=== PATIENT | female | born 1960 | race Caucasian/White ===

== ENCOUNTER 2024-03-04 20:33 | Emergency (ER) | payer OTHER ==
[2024-03-04] MEDS ORDERED: ONDANSETRON 4 MG/2 ML VIAL ONE (21:06)
[2024-03-04] MEDS ORDERED: MORPHINE 4 MG/ML SYR ONE (21:07)
[2024-03-04 21:16] LABS: Absolute Basophils 0.1 K/uL (0-0.5); Absolute Eosinophils 0.1 K/uL (0-0.5); Absolute Lymphocytes (CBC) 0.4 K/uL (0.7-4.9); Absolute Monocytes 0.5 K/uL (0.1-1.3); Absolute Neutrophil 12.3 K/uL (1.8-8.0); Basophils % 0.4 % (0-1.3); Eosinophils % 0.9 % (0-4.4); Hematocrit 32.4 % (36.0-45.0); Hemoglobin 10.9 g/dL (12.0-15.0); Lymphocytes % 3.2 % (15.3-44.8); MCH 31.6 pg (27.0-35.0); MCHC 33.6 g/dL (32.0-36.0); MCV 94.3 fL (80-100); MPV 8.5 fL (7.6-11.3); Monocytes % 3.6 % (3.3-12.3); Neutrophils % 91.9 % (41.7-73.7); Nucleated Red Blood Cells % 0.1 % (0-0); Platelets 249 thou/uL (152-406); RBC Red Blood Cell Count 3.44 M/uL (3.86-4.86); Red Cell Distribution Width 15.5 % (12.1-15.2)
[2024-03-04 21:17] LABS: Platelet Estimate ADEQ; White Blood Cell Scan OK (OK)
[2024-03-04 21:18] LABS: Blood Morphology Comment NOT SEEN (NOT SEEN)
[2024-03-04 21:39] LABS: AST/SGOT 13 U/L (15-37); Albumin 3.2 g/dL (3.4-5.0); Albumin/Globulin Ratio 0.9 (1.1-1.8); Alkaline Phosphatase 115 U/L (45-117); Anion Gap 13.7 mEq/L (5.0-15.0); BUN Blood Urea Nitrogen 48 mg/dL (7-18); Bicarbonate 21 mEq/L (21-32); Bilirubin Total 0.5 mg/dL (0.2-1.0); Creatine Phosphokinase 499 U/L (26-192); Globulin 3.6 g/dL (2.3-3.5); Glomerular Filtration Rate 4 ml/min (=/>90); Glucose Level 107 mg/dL (74-106); Potassium 4.7 mEq/L (3.5-5.1); Protein, Total 6.8 g/dL (6.4-8.2); Sodium Level 130 mEq/L (136-145)
[2024-03-04 21:40] LABS: ALT/SGPT < 14 U/L (13-56)
--- NOTE | 2024-03-05 00:03 | ER ---
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 Pt had a blockage in jb4 her right leg that [facility] tried to clear. She was discharged and today she stood up and felt a sharp pain in her calf that went up to her thigh. Now her right foot has no feeling, and is colder than the left. Coronavirus screen: At this time, the client does not indicate any symptoms associated with coronavirus-19. Ebola Screen: No symptoms or risks identified at this time. Initial Sepsis Screen: Does the patient meet any 2 criteria? No. Patient's initial sepsis screen is negative. Does the patient have a suspected source of infection? No. Patient's initial sepsis screen is negative. Risk Assessment: Do you want to hurt yourself or someone else? Patient reports no desire to harm self or others. Onset of symptoms was March 04, 2024. Transition of care: patient was not received from another setting of care. 20:40 Method Of Arrival: EMS: [facility] jb4 20:40 Acuity: OLIMP[place] 2 jb4 Historical: - Allergies: 20:42 No Known Allergies; jb4 - PMHx: 20:42 Dialysis; HTN; Renal failure; Smoking; jb4 - PSHx: 20:42 J LUIS nephrectomy; jb4 - Immunization history:: Adult Immunizations up to date. - Infectious Disease History:: Denies. - Social history:: Smoking status: Patient/guardian denies using tobacco. Screenin/01 00:40 [facility] ED Fall Risk Assessment (Adult) History of falling in the last 3 months, jb4 including since admission No falls in past 3 months (0 pts) Confusion or Disorientation No (0 pts) Intoxicated or Sedated No (0 pts) Impaired Gait No (0 pts) Mobility Assist Device Used No (0 pt) Altered Elimination No (0 pt) Score/Fall Risk Level 0 - 2 = Low Risk Oriented to surroundings, Maintained a safe environment. Abuse screen: Denies threats or abuse. Nutritional screening: No deficits noted. Tuberculosis screening: No symptoms or risk factors identified. Assessment: 03/04 20:45 General: Appears in no apparent distress. uncomfortable, Behavior is cooperative, jb4 anxious. Pain: Complains of pain in right foot Pain does not radiate. Pain currently is 6 out of 10 on a pain scale. Neuro: Level of Consciousness is awake, alert, obeys commands, Oriented to person, place, time, situation, Numbness in right foot. Cardiovascular: Patient's skin is warm and dry. Pulses are 1+ in right dorsalis pedis artery are 2+ in left dorsalis pedis artery. Respiratory: Airway is patent Respiratory effort is even, unlabored, Respiratory pattern is regular, symmetrical. GI: No signs and/or symptoms were reported involving the gastrointestinal system. : No signs and/or symptoms were reported regarding the genitourinary system. EENT: No signs and/or symptoms were reported regarding the EENT system. Derm: Skin is intact, Skin is dry, Skin is normal, Skin temperature is Left foot is warm, right foot is cool. Musculoskeletal: Circulation, motion, and sensation intact. Range of motion: intact in all extremities, Reports numbness in right foot. 22:02 Reassessment: Patient appears in no apparent distress at this time. Patient and/or jb4 family updated on plan of care and expected duration. Pain level reassessed. Patient is alert, oriented x 3, equal unlabored respirations, skin warm/dry/pink. Pt now reports being able to feel when her right foot is touched. Patient states symptoms have improved. 23:38 Reassessment: Patient appears in no apparent distress at this time. Patient and/or jb4 family updated on plan of care and expected duration. Pain level reassessed. Patient is alert, oriented x 3, equal unlabored respirations, skin warm/dry/pink. 03/05 00:09 Reassessment: Patient appears in no apparent distress at this time. Patient and/or jb4 family updated on plan of care and expected duration. Pain level reassessed. Patient is alert, oriented x 3, equal unlabored respirations, skin warm/dry/pink. J LUIS are now both pink and warm, Pulses 2+, and. Vital Signs: 03/04 20:40 BP 154 / 118; Pulse 76; Resp 16; Pulse Ox 91% on R/A; Weight 78.93 kg (R); Height 5 ft. jb4 3 in. (R); Pain 6/10; 21:00 BP 161 / 51; Pulse 71; Resp 16; Pulse Ox 92% on 2 lpm NC; jb4 23:38 BP 187 / 81; Pulse 67; Resp 16; Pulse Ox 97% on 4 lpm NC; jb4 03/05 00:14 BP 207 / 89; Pulse 64; Resp 16; Pulse Ox 96% on 4 lpm NC; jb4 00:40 BP 167 / 78; Pulse 62; Resp 16; Pulse Ox 95% on 4 lpm NC; jb4 03/04 20:40 Body Mass Index 30.82 (78.93 kg, 160.02 cm) jb4 03/04 20:40 Pain Scale: Adult jb4 ED Course: 03/04 20:38 Patient arrived in ED. vc1 20:38 Trino Reed MD is Attending Physician. rt 20:42 Triage completed. jb4 20:42 Arm band placed on right wrist. jb4 21:40 CT Abdomen - Angio In Process Unspecified. EDMS 21:40 Pelvis Angio In Process Unspecified. EDMS 21:41 Lower Ext Angio In Process Unspecified. EDMS 21:58 Vipul Fields, RN is Primary Nurse. jb4 23:43 Initiated transfer with Lorraine at [facility]. rv1 23:53 Doc to Doc with Vascular Sx Dr. Reich. rv1 23:56 Pt accepted to [facility] 9A Rm [address] Reich. rv1 03/05 00:22 Percy with EMS gave 10-15 min ETA. rv1 00:40 Patient has correct armband on for positive identification. Bed in low position. Call [facility] light in reach. Side rails up X 1. Provided Education on: need for transfer. 00:40 No provider procedures requiring assistance completed. Patient transferred, IV remains jb4 in place. Administered Medications: 03/04 21:13 Drug: morphine IVP or IV 4 mg IVP once over 4 mins Route: IVP; Infused Over: 4 mins; jb4 Site: right hand; 21:13 Drug: Ondansetron IVP 4 mg IVP once; over 2 minutes Route: IVP; Site: right hand; jb4 03/05 00:15 Drug: hydrALAZINE IVP 10 mg IVP once Route: IVP; Site: right forearm; jb4 Medication: 00:40 VIS not applicable for this client. jb4 Outcome: 00:03 ER care complete, transfer ordered by . rt 01:40 Transferred by ground EMS to [facility], Transfer form jb4 completed. X-rays sent w/ patient. 01:40 Condition: stable 01:40 Discharge instructions given to patient, Instructed on the need for transfer, Demonstrated understanding of instructions, 01:42 Patient left the ED. jb4 Signatures: Dispatcher [employer] EDMS Vipul Fields RN RN jb4 Samreen Tavares RN RN vc1 Trino Reed MD MD rt Villegas, Rebecca 1
--- NOTE | 2024-03-05 00:03 | EDPHYS ---
Physician Documentation [facility] Name: Sabrina Camargo Age: 63 yrs Sex: Female : 1960 Arrival Date: 03/04/2024 Time: 20:33 Bed 23 Private MD: ED Physician Trino Reed HPI: 03/04 20:41 This 63 yrs old Female presents to ER via Unassigned with complaints of leg numbness, rt pain. 20:41 Patient had a vascular procedure today to improve mesenteric ischemia, this was done at rt [place]. The patient reported pain to the right leg with numbness, stating that his cold about 30 minutes. Was told to come to the nearest ER by her physician. Denies other acute complaints, symptoms are severe in severity, no other aggravating or elevating factors.. Historical: - Allergies: 20:42 No Known Allergies; jb4 - PMHx: 20:42 Dialysis; HTN; Renal failure; Smoking; jb4 - PSHx: 20:42 J LUIS nephrectomy; jb4 - Immunization history:: Adult Immunizations up to date. - Infectious Disease History:: Denies. - Social history:: Smoking status: Patient/guardian denies using tobacco. ROS: 20:41 Constitutional: Negative for fever, chills, and weight loss, Cardiovascular: Negative rt for chest pain, palpitations, and edema, Respiratory: Negative for shortness of breath, cough, wheezing, and pleuritic chest pain, Abdomen/GI: Negative for abdominal pain, nausea, vomiting, diarrhea, and constipation, 20:41 MS/extremity: Positive for pain, paresthesias, Exam: 20:41 Constitutional: This is a well developed, well nourished patient who is awake, alert, rt and in no acute distress. Head/Face: Normocephalic, atraumatic. Chest/axilla: Normal chest wall appearance and motion. Nontender with no deformity. No lesions are appreciated. Cardiovascular: Regular rate and rhythm with a normal S1 and S2. No gallops, murmurs, or rubs. Normal PMI, no JVD. No pulse deficits. Respiratory: Lungs have equal breath sounds bilaterally, clear to auscultation and percussion. No rales, rhonchi or wheezes noted. No increased work of breathing, no retractions or nasal flaring. Abdomen/GI: Soft, non-tender, with normal bowel sounds. No distension or tympany. No guarding or rebound. No evidence of tenderness throughout. 20:41 Musculoskeletal/extremity: Right lower extremity is cool, unable to palpate dorsalis pedis pulses, no focal areas of tenderness, no deformities. Vital Signs: 20:40 BP 154 / 118; Pulse 76; Resp 16; Pulse Ox 91% on R/A; Weight 78.93 kg (R); Height 5 ft. jb4 3 in. (R); Pain 6/10; 21:00 BP 161 / 51; Pulse 71; Resp 16; Pulse Ox 92% on 2 lpm NC; jb4 23:38 BP 187 / 81; Pulse 67; Resp 16; Pulse Ox 97% on 4 lpm NC; jb4 03/05 00:14 BP 207 / 89; Pulse 64; Resp 16; Pulse Ox 96% on 4 lpm NC; jb4 00:40 BP 167 / 78; Pulse 62; Resp 16; Pulse Ox 95% on 4 lpm NC; jb4 03/04 20:40 Body Mass Index 30.82 (78.93 kg, 160.02 cm) 4 03/04 20:40 Pain Scale: Adult jb4 MDM: 03/04 20:38 Patient medically screened. rt 03/05 01:19 Differential Diagnosis Acute claudication, thrombus, ischemic leg. Data reviewed: vital rt signs, nurses notes. Management of patient was discussed with the following: Political Science Instructor: Discussed with accepting vascular surgeon at [facility]. Will transfer her there as she just had a vascular procedure at that facility. I considered the following discharge prescriptions or medication management in the emergency department Medications were administered in the Emergency Department. See MAR. Independent interpretation of the following test(s) in the Emergency Department CT Scan: My interpretation is Contrast goes to the plantar arches on my interpretation of CT scan images. Care significantly affected by the following chronic conditions: Chronic Kidney Disease. Counseling: I had a detailed discussion with the patient and/or guardian regarding the historical points, exam findings, and any diagnostic results supporting the discharge/admit diagnosis, lab results, radiology results, the need to transfer to another facility. Response to treatment: the patient's symptoms have markedly improved after treatment. 03/04 20:39 Order name: CBC with Diff; Complete Time: 21:41 rt 03/04 20:39 Order name: CMP; Complete Time: 21:41 rt 03/04 20:39 Order name: CPK; Complete Time: 21:41 rt 03/04 20:39 Order name: Lactate w/ 2H reflex if indic.; Complete Time: 21:41 rt 03/04 21:18 Order name: CBC Smear Scan; Complete Time: 21:41 EDMS 03/04 20:39 Order name: CT Abdomen - Angio rt 03/04 21:33 Order name: Pelvis Angio EDMS 03/04 21:33 Order name: Lower Ext Angio EDMS Administered Medications: 03/04 21:13 Drug: morphine IVP or IV 4 mg IVP once over 4 mins Route: IVP; Infused Over: 4 mins; jb4 Site: right hand; 21:13 Drug: Ondansetron IVP 4 mg IVP once; over 2 minutes Route: IVP; Site: right hand; jb4 03/05 00:15 Drug: hydrALAZINE IVP 10 mg IVP once Route: IVP; Site: right forearm; jb4 Disposition Summary: 03/05/24 00:03 Transfer Ordered Notes: Transfer Location: [facility] rt Reason: Private Physician at Transferring Hospital rt Condition: Stable rt Problem: new rt Symptoms: have improved rt Accepting Physician: (03/05/24 01:42) jb4 Diagnosis - 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
--- NOTE | 2024-03-05 00:04 | RAD REPORT ---
ADDENDUM #1 Addendum: These findings were relayed to Dr. Trino Reed on March 04, 2024 at 11:34 PM. Electronically signed by: Dmitry Pina MD 03/04/2024 11:34 PM CDT RP End of Addendum Clinical Indication: Bed Name: 23; with lower extremity runoff, pulsless right leg Comparison: February 02, 2024 TECHNIQUE: CT angiography of the abdomen, pelvis and lower extremities was performed from the level o f the upper abdomen to the feet after administration of iodinated contrast. Coronal and sagittal reconstructions were obtained. 3-D reconstruction imaging with postprocessing was also performed of t he arterial vessels. Coronal and sagittal MIP images were performed and provided as separate series. IV CONTRAST: IV contrast dose was not provided All CT scans at this location are performed using dose optimization techniques as appropriate to perf orm the study. Radiation dose reduction technique was utilized including one or more of the following: Automated exp osure control, adjustment of the mA and/or kV according to patient size and use of iterative reconstruction technique. CT Radiation Dose DLP 1484.7 mGy-cm FINDINGS: CTA ABDOMEN: ARTERIAL EVALUATION: The abdominal aorta is moderately atherosclerotic. The celiac, superior mesenteric and inferior mesenteric arteries are patent. The proximal arterial br anches are opacified. Moderate atherosclerotic disease is noted at the origin of the SMA and bilateral renal arteries. The renal arteries are patent without evidence of renal artery stenosis. There are 1 right and 1 left renal arteries. The right renal artery is diminutive and the right kidney is atrophic. Mild ectasia of the distal aorta is noted measuring 3.5 cm in maximum diameter. ABDOMINAL SOLID ORGANS: The arterial phase contrast-enhanced images of the liver, gallbladder, pancre as, left kidney and adrenals are unremarkable. The right kidney is atrophic. Heterogeneous enhancement of the spleen is noted and grossly unchanged compared to February 02, 2024. A left double-J ureteral stent is noted. The proximal loop is in the renal pelvis. The distal loop is in the urinary bladder. 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 PERITONEUM AND RETROPERITONEUM: There is no retroperitoneal or abdominal lymphadenopathy. There is no abdominal ascites. STOMACH AND BOWEL: The noncontrast opacified stomach appears unremarkable. The noncontrast opacified loops of bowel in the abdomen are unremarkable. VISUALIZED LUNG BASES: Unremarkable. OSSEOUS STRUCTURES: No acute bony abnormalities are noted. Degenerative changes of the thoracolumba r spine are noted. CTA PELVIS: ARTERIAL EVALUATION: Moderate atherosclerotic disease is noted in the bilateral common, external and internal iliac arteries. No critical stenosis is noted. The right common femoral artery is moderately atherosclerotic without stenosis, dissection or aneurysm. The left common femoral artery contains an adjacent lobulated region of contrast. This can be seen on image 39 series 403. Surrounding fat stranding is noted. The complex measures 12 x 17 mm in cross-section. This is consistent with pseudoaneurysm. Subcutaneous fat stranding is noted in the lef t groin, likely hemorrhage.. BOWEL: The noncontrast opacified loops of small bowel and colon in the pelvis appear unremarkable. Sc attered diverticuli are noted in the sigmoid colon. No surrounding inflammatory changes are seen to suggest acute diverticulitis. The appendix is normal in caliber without surrounding inflammatory linares ges. PERITONEUM AND EXTRAPERITONEAL REGIONS: There is no pelvic lymphadenopathy or ascites. The inguinal r egions are unremarkable. BLADDER: The bladder is unremarkable. PELVIS: The uterus and adnexa are unremarkable. OSSEOUS STRUCTURES: There are no acute osseous abnormalities seen. CTA EXTREMITY: LOWER EXTREMITY ARTERIAL EVALUATION: RIGHT: The right profunda femoris is patent. Moderate stenosis is noted in the right proximal SFA. This is a pproximately 70%. Evaluation of the arterial lumen is limited due to extensive atherosclerotic disease. Extensive luminal irregularity is noted, consistent with moderate long segment stenosis. Foc al areas of nonopacification are noted but likely limited evaluation with the calcification and are just areas of moderate to high-grade stenoses. The popliteal artery is moderately atherosclerotic and opacified. The tibioperoneal trunk is unremarkable. There is at least single vessel runoff to the ankle with the posterior tibial artery. The plantar arch is opacified. The anterior tibial artery is likely patent and evaluation is limited due to bolus timing. LEFT: The left profunda femoris is patent. The left SFA is patent and moderately atherosclerotic. The popli teal artery is opacified. The tibioperoneal trunk is unremarkable. There is two-vessel runoff to the left ankle with peroneal and anterior tibial artery. The dorsalis pedis artery is opacified. A co llateral vessel is noted from the peroneal to the plantar arch. Opacification of the left plantar arch is noted. NON-VASCULAR LOWER EXTREMITY STRUCTURES: There are no fractures or dislocations noted. The lower extr emity musculature appears unremarkable. IMPRESSION: 1. Moderately atherosclerotic aortoiliac vessels. 2. 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 3. Extensive atherosclerotic disease within the lower extremity arteries, greater on the right. 4. Single vessel runoff to the right ankle with posterior tibial artery. The plantar arch is opacifie d. Anterior tibial artery is likely patent and evaluation is limited due to bolus timing. 5. Two-vessel runoff to the left ankle with peroneal and anterior tibial artery. Collateral vessel fr om the peroneal artery to the plantar arch is noted. Electronically signed by: Dmitry Pina MD 03/04/2024 11:28 PM CDT RP Due to temporary technical issues with the PACS/[employer] reporting system, reports are being sarah d by the in-house radiologist without review as a courtesy to ensure prompt reporting the interpreting radiologist is fully responsible for the content of the report. Transcribed Date/Time: 03/05/2024 12:03 AM
[2024-03-05] MEDS ORDERED: HYDRALAZINE HCL 20 MG/ML VIAL ONE (00:12)
[2024-03-05 02:21] VITALS: BP 167/78; O2SAT 95
== END 2024-03-05 01:42 | disposition short-term general hospital (02) ==
LOC: ER 20:33
DX: I70.8 Atherosclerosis of other arteries (principal); I72.8 Aneurysm of other specified arteries; Z98.890 Other specified postprocedural states; I12.0 Hypertensive chronic kidney disease with stage 5 chronic kidney disease or end stage renal disease; N18.6 End stage renal disease; Z99.2 Dependence on renal dialysis
CPT/HCPCS: 85025; 36415; 82550; 83605; 80053; 73706; 72191; 74175; 99285; Q9967; J0360; J2405; 75635

== ENCOUNTER 2024-05-27 11:10 | Emergency (ER) | payer OTHER ==
--- NOTE | 2024-05-27 12:04 | RAD REPORT ---
EXAM: CT brain without contrast HISTORY: TRAUMA COMPARISON: None TECHNIQUE: Multiple contiguous axial images were obtained and a CT of the brain without contrast. Sag ittal and coronal reformats were performed. FINDINGS: No evidence of hydrocephalus, intracranial hemorrhage, or extra-axial fluid collection. Mild brain atrophy with mild periventricular and deep white matter chronic microvascular ischemic ch anges present. Focus of radiodensity along the course of the left MCA in the sylvian fissure, may represent intracranial atherosclerotic calcification. The calvarium is intact. The visualized paranasal sinuses and mastoid air cells are essentially clear . Mild left frontal scalp swelling. IMPRESSION: No evidence of acute intracranial abnormality. EXAM: CT of the cervical spine without contrast HISTORY: TRAUMA COMPARISON: None TECHNIQUE: Multiple contiguous axial images were obtained in a CT of the cervical spine without contr ast. Sagittal and coronal reformats were performed. FINDINGS: The vertebral bodies demonstrate normal height and alignment. No evidence of acute fracture or subluxation.. No degenerative changes are present. No prevertebral soft tissue swelling is seen. The posterior facets are well aligned. Normal alignment of the skull base with the cervical spine is seen. The lung apices are unremarkable. Incompletely evaluated left thyroid heterogeneous low-density and partially calcified 1.6 cm nodule. IMPRESSION: No evidence of acute osseous abnormality of the cervical spine. Incidentally noted left thyroid 1.6 cm nodule as above, which may benefit from dedicated thyroid ultr asound evaluation if not previously performed.
--- NOTE | 2024-05-27 12:17 | ER ---
Nurse's Notes [facility] [place] Name: Sabrina Camargo Age: 63 yrs Sex: Female : 1960 Arrival Date: 05/27/2024 Time: 11:10 Bed 8 Private MD: Diagnosis: Fall on same level, unspecified;Repeated falls;Unspecified injury of head, initial encounter;Dependence on renal dialysis;Nontoxic single thyroid nodule-incidental finding Presentation: 05/27 11:42 Chief complaint: Patient states: fell on Monday, hung foot on wheelchair when getting ko1 into car after dialysis. I had vascular surgery in my right leg in March and its a little weak so its easy to fall. Coronavirus screen: At this time, the client does not indicate any symptoms associated with coronavirus-19. Ebola Screen: No symptoms or risks identified at this time. Initial Sepsis Screen: Does the patient meet any 2 criteria? No. Patient's initial sepsis screen is negative. Does the patient have a suspected source of infection? No. Patient's initial sepsis screen is negative. Risk Assessment: Do you want to hurt yourself or someone else? Patient reports no desire to harm self or others. Onset of symptoms was May 25, 2024. Mechanism of Injury: Fall from standing position. 11:42 Method Of Arrival: Ambulatory ko1 11:42 Acuity: OLIMPIA 3 ko1 Triage Assessment: 11:46 General: Appears in no apparent distress. Behavior is calm, cooperative, appropriate ko1 for age. Pain: Denies pain. EENT: No deficits noted. Neuro: No deficits noted. Cardiovascular: No deficits noted. Respiratory: No deficits noted. GI: No deficits noted. : Reports dialysis patient, access in right upper chest and fistula to left upper arm. Derm: Bruising that is green, yellow, on forehead. Musculoskeletal: No deficits noted. No signs and/or symptoms reported regarding the musculoskeletal system. Injury Description: Abrasion sustained to forehead was sustained 2 days ago. Historical: - Allergies: 11:46 No Known Allergies; ko1 - PMHx: 11:46 Dialysis; HTN; RENAL FAILURE; Smoking; Myocardial infarction; ko1 - PSHx: 11:46 J LUIS nephrectomy; vascular surgery (J LUIS nephrectomy ); Stented artery; ko1 - Immunization history:: Adult Immunizations up to date. - Infectious Disease History:: Denies. - Family history:: not pertinent. - Social history:: Smoking status: Patient reports the use of cigarette tobacco products, smokes one-half pack cigarettes per day, Reported history of juuling and/or vaping. Screenin:48 [facility] ED Fall Risk Assessment (Adult) History of falling in the last 3 months, ko1 including since admission Yes- single mechanical fall (1 pt) Confusion or Disorientation No (0 pts) Intoxicated or Sedated No (0 pts) Impaired Gait No (0 pts) Mobility Assist Device Used No (0 pt) Altered Elimination No (0 pt) Score/Fall Risk Level 0 - 2 = Low Risk Oriented to surroundings, Maintained a safe environment, Educated pt \T\ family on fall prevention, incl call for assistance when getting out of bed, Assessed \T\ reinforced patient's understanding of fall precautions, Hourly rounding (assess needs \T\ fall precautionary measures) done. Abuse screen: Denies threats or abuse. Denies injuries from another. Nutritional screening: No deficits noted. Tuberculosis screening: No symptoms or risk factors identified. Assessment: 11:48 Reassessment: see triage note. ko1 Vital Signs: 11:42 BP 148 / 73; Pulse 84; Resp 18; Temp 97.1; Pulse Ox 98% on R/A; ko1 12:26 BP 147 / 57; Pulse 80; Resp 15; Pulse Ox 99% ; ko1 ED Course: 11:12 Patient arrived in ED. mr 11:16 Travis Bean MD is Attending Physician. shraddha 11:29 CT Head C Spine In Process Unspecified. EDMS 11:33 Shannen Patel, CHELSEA is Primary Nurse. ko1 11:45 Triage completed. ko1 11:46 Arm band placed on right wrist. Patient placed in an exam room, on a stretcher, on ko1 pulse oximetry, Patient notified of wait time. 11:48 Patient has correct armband on for positive identification. Bed in low position. Call ko1 light in reach. Side rails up X 1. Provided Education on: tests. Pulse ox on. NIBP on. Door closed. Noise minimized. Lights dimmed. Pillow given. 11:48 No provider procedures requiring assistance completed. ko1 12:26 Patient did not have IV access during this emergency room visit. ko1 Administered Medications: No medications were administered Medication: 11:48 VIS not applicable for this client. ko1 Outcome: 12:16 Discharge ordered by . shraddha 12:26 Discharged to home ambulatory, ko1 12:26 Condition: stable 12:26 Discharge instructions given to patient, Instructed on discharge instructions, follow up and referral plans. Demonstrated understanding of instructions, follow-up care, 12:27 Patient left the ED. ko1 Signatures: Dispatcher [employer] EDMS Travis Bean MD MD cha Rivera, Mary, [facility] Reg Shannen Jauregui, RN RN ko1 Corrections: (The following items were deleted from the chart) 11:51 11:46 : No deficits noted. ko1 ko1
--- NOTE | 2024-05-27 12:17 | EDPHYS ---
Physician Documentation [facility] Name: Sabrina Camargo Age: 63 yrs Sex: Female : 1960 Arrival Date: 05/27/2024 Time: 11:10 Bed 8 Private MD: ED Physician Travis Bean HPI: 05/27 11:33 This 63 yrs old Female presents to ER via Unassigned with complaints of Fall shraddha Injury, Head Injury-Adult. 11:33 Details of fall: The patient fell from an upright position, while walking. Onset: The shraddha symptoms/episode began/occurred yesterday. Associated injuries: The patient sustained injury to the head, contusion, swelling. Severity of symptoms: At their worst the symptoms were mild, in the emergency department the symptoms are unchanged. The patient has experienced similar episodes in the past, several times. Historical: - Allergies: 11:46 No Known Allergies; ko1 - PMHx: 11:46 Dialysis; HTN; RENAL FAILURE; Smoking; Myocardial infarction; ko1 - PSHx: 11:46 J LUIS nephrectomy; vascular surgery (J LUIS nephrectomy ); Stented artery; ko1 - Immunization history:: Adult Immunizations up to date. - Infectious Disease History:: Denies. - Family history:: not pertinent. - Social history:: Smoking status: Patient reports the use of cigarette tobacco products, smokes one-half pack cigarettes per day, Reported history of juuling and/or vaping. ROS: 11:33 Constitutional: Negative for fever, chills, and weight loss, Eyes: Negative for injury, shraddha pain, redness, and discharge, ENT: Negative for injury, pain, and discharge, Neck: Negative for injury, pain, and swelling, Cardiovascular: Negative for chest pain, palpitations, and edema, Respiratory: Negative for shortness of breath, cough, wheezing, and pleuritic chest pain, Abdomen/GI: Negative for abdominal pain, nausea, vomiting, diarrhea, and constipation, Back: Negative for injury and pain, : Negative for injury, bleeding, discharge, and swelling, MS/Extremity: Negative for injury and deformity, Skin: Negative for injury, rash, and discoloration, Psych: Negative for depression, anxiety, suicide ideation, homicidal ideation, and hallucinations, Allergy/Immunology: Negative for hives, rash, and allergies, Endocrine: Negative for neck swelling, polydipsia, polyuria, polyphagia, and marked weight changes, Hematologic/Lymphatic: Negative for swollen nodes, abnormal bleeding, and unusual bruising, 11:33 Neuro: Positive for headache, of the forehead, Exam: 11:33 Constitutional: This is a well developed, well nourished patient who is awake, alert, shraddha and in no acute distress. Eyes: Pupils equal round and reactive to light, extra-ocular motions intact. Lids and lashes normal. Conjunctiva and sclera are non-icteric and not injected. Cornea within normal limits. Periorbital areas with no swelling, redness, or edema. ENT: Nares patent. No nasal discharge, no septal abnormalities noted. Tympanic membranes are normal and external auditory canals are clear. Oropharynx with no redness, swelling, or masses, exudates, or evidence of obstruction, uvula midline. Mucous membranes moist. Neck: Trachea midline, no thyromegaly or masses palpated, and no cervical lymphadenopathy. Supple, full range of motion without nuchal rigidity, or vertebral point tenderness. No Meningismus. Chest/axilla: Normal chest wall appearance and motion. Nontender with no deformity. No lesions are appreciated. Cardiovascular: Regular rate and rhythm with a normal S1 and S2. No gallops, murmurs, or rubs. Normal PMI, no JVD. No pulse deficits. Respiratory: Lungs have equal breath sounds bilaterally, clear to auscultation and percussion. No rales, rhonchi or wheezes noted. No increased work of breathing, no retractions or nasal flaring. Abdomen/GI: Soft, non-tender, with normal bowel sounds. No distension or tympany. No guarding or rebound. No evidence of tenderness throughout. Back: No spinal tenderness. No costovertebral tenderness. Full range of motion. Skin: Warm, dry with normal turgor. Normal color with no rashes, no lesions, and no evidence of cellulitis. MS/ Extremity: Pulses equal, no cyanosis. Neurovascular intact. Full, normal range of motion., bilateral aka Neuro: Awake and alert, GCS 15, oriented to person, place, time, and situation. Cranial nerves II-XII grossly intact. Motor strength 5/5 in all extremities. Sensory grossly intact. Cerebellar exam normal. Normal gait. Psych: Awake, alert, with orientation to person, place and time. Behavior, mood, and affect are within normal limits. 11:33 Head/face: Noted is contusion, that is superficial, of the forehead, Vital Signs: 11:42 BP 148 / 73; Pulse 84; Resp 18; Temp 97.1; Pulse Ox 98% on R/A; ko1 12:26 BP 147 / 57; Pulse 80; Resp 15; Pulse Ox 99% ; ko1 MDM: 11:16 Medical Screening Exam initiated shraddha 11:35 Differential diagnosis: abrasion, closed head injury, contusion, fracture, laceration, shraddha multiple trauma, sprain, strain. Data reviewed: vital signs, nurses notes, radiologic studies, CT scan. Consideration of Admission/Observation Escalation of care including admission/observation considered. I considered the following discharge prescriptions or medication management in the emergency department Medications were administered in the Emergency Department. See MAR. Independent interpretation of the following test(s) in the Emergency Department CT Scan: My interpretation is ct head / c spine. Test considered but Not performed: Labs: no labs. Historians other than the Patient: pt well informed, GCS 15. Care significantly affected by the following chronic conditions: Diabetes, Hypertension, Chronic Kidney Disease. 05/27 11:16 Order name: CT Head C Spine; Complete Time: 12:15 shraddha Administered Medications: No medications were administered Disposition Summary: 05/27/24 12:16 Discharge Ordered Notes: Location: Home shraddha Problem: new shraddha Symptoms: have improved shraddha Condition: Stable shraddha Diagnosis - Fall on same level, unspecified shraddha - Repeated falls shraddha - Unspecified injury of head, initial encounter shraddha - Dependence on renal dialysis shraddha - Nontoxic single thyroid nodule - incidental finding shraddha Followup: shraddha - With: Private Physician - When: 1 - 2 days - Reason: Recheck today's complaints, Continuance of care, Re-evaluation by your physician Discharge Instructions: - Discharge Summary Sheet shraddha - Head Injury, Adult shraddha - Fall Prevention in the Home, Adult shraddha - Thyroid Nodule shraddha - End-Stage Kidney Disease shraddha - Fall Prevention in the Home, Adult, [id number] shraddha - Incidental Abnormal Radiological Finding shraddha - Head Injury, Adult, [id number] shraddha - Hemodialysis shraddha Forms: - Medication Reconciliation Form shraddha - Antibiotic Education shraddha - Prescription Opioid Use shraddha - Patient Portal Instructions shraddha - Leadership Thank You Letter shraddha Signatures: Dispatcher [employer] Travis Gray MD MD cha Oliver, Kathy, RN RN ko1
[2024-05-27 12:31] VITALS: TEMP 97.1
[2024-05-27 12:32] VITALS: BP 147/57; O2SAT 99
== END 2024-05-27 12:27 | disposition home or self-care (01) ==
LOC: ER 11:10
DX: S00.83XA Contusion of other part of head, initial encounter (principal); W18.30XA Fall on same level, unspecified, initial encounter; R29.6 Repeated falls; E04.1 Nontoxic single thyroid nodule; I12.0 Hypertensive chronic kidney disease with stage 5 chronic kidney disease or end stage renal disease; N18.6 End stage renal disease; Z99.2 Dependence on renal dialysis; F17.210 Nicotine dependence, cigarettes, uncomplicated
CPT/HCPCS: 70450; 72125; 99283

== ENCOUNTER 2025-03-11 21:17 | Emergency (ER) | payer OTHER ==
[2025-03-11] MEDS ORDERED: NA CHLORIDE 0.9% 2,000 ML ONE (21:23)
[2025-03-11] MEDS ORDERED: ALBUMIN HUMAN 25% 100 ML IV ONE (21:54)
[2025-03-11 21:59] LABS: Absolute Lymphocytes (CBC) 0.5 K/uL (0.7-4.9); Hematocrit 24.1 % (36.0-45.0); Hemoglobin 7.9 g/dL (12.0-15.0); MCH 28.0 pg (27.0-35.0); MCHC 32.7 g/dL (32.0-36.0); MCV 85.5 fL (80-100); MPV 8.7 fL (7.6-11.3); Nucleated RBC Absolute Count 0.0 (0-0); Nucleated Red Blood Cells % 0.0 % (0-0); RBC Red Blood Cell Count 2.82 M/uL (3.86-4.86); White Blood Count 10.70 thou/uL (4.3-10.9)
[2025-03-11 22:09] LABS: PT Prothrombin Time 23.4 SECONDS (10-13.0); Protime INR 2.12
--- NOTE | 2025-03-11 22:21 | RAD REPORT ---
EXAM: Chest Single View HISTORY: 64 years Female hypoxia COMPARISON: No prior exams FINDINGS: LUNGS/PLEURA: Pulmonary vascular congestion. No consolidative airspace disease. CARDIAC/MEDIASTINUM: Moderate cardiomegaly. UPPER ABDOMEN: No significant abnormality. BONES: No acute abnormality. LINES/TUBES/OTHER: N/A IMPRESSION: Pulmonary vascular congestion. No alveolar edema or consolidative airspace disease.
[2025-03-11 22:34] LABS: AST/SGOT 14 U/L (15-37); Albumin 3.2 g/dL (3.4-5.0); Albumin/Globulin Ratio 0.8 (1.1-1.8); Alkaline Phosphatase 163 U/L (45-117); Anion Gap 18.2 mEq/L (5.0-15.0); BUN Blood Urea Nitrogen 53 mg/dL (7-18); Bilirubin Indirect, Calculated 0.1 mg/dL (0.2-0.8); Globulin 3.8 g/dL (2.3-3.5); Glucose Level 104 mg/dL (74-106); Magnesium 2.5 mg/dL (1.6-2.4); Potassium 4.2 mEq/L (3.5-5.1)
[2025-03-11 22:35] LABS: ALT/SGPT < 14 U/L (13-56); NT PRO-BNP > 175000 pg/mL (<125)
[2025-03-11 22:37] LABS: Troponin High Sensitivity 296.3 pg/mL (<58.9)
[2025-03-11 22:44] LABS: Differential Total Cells Count 100; Segmented Neutrophils 88 % (40-80)
[2025-03-11 22:45] LABS: Anisocytosis 1+; Blood Morphology Comment NOTED (NOT SEEN); Hypochromasia 1+; Microcytosis 1+; Polychromasia SLIGHT
[2025-03-11] MEDS ORDERED: FENTANYL CITR 100 MCG/2 ML ONE (23:49)
--- NOTE | 2025-03-11 23:53 | EDPHYS ---
Physician Documentation [facility] Name: Sabrina Camargo Age: 64 yrs Sex: Female : 1960 Arrival Date: 03/11/2025 Time: 21:17 Bed 3 Private MD: ED Physician Eric Fish HPI: 03/11 22:59 This 64 yrs old Female presents to ER via EMS with complaints of Blood Pressure Problem.sb4 22:59 Patient's home health nurse called EMS today because she was very hypotensive. She was sb4 recently released from [facility] after femoral artery bypass surgery, per patient. She is requesting transfer back to [facility]. EMS reported a blood pressure of 50 systolic and was unable to perform any interventions. She is awake alert and oriented x 4 upon arrival to the ED without any complaints. Historical: - PMHx: 21:49 Dialysis; HTN; Myocardial infarction; RENAL FAILURE; kb4 - Immunization history:: Adult Immunizations up to date. - Infectious Disease History:: Denies. - Social history:: Smoking status: Patient/guardian denies using tobacco, Stopped _ months ago 2. ROS: 22:59 Constitutional: Negative for fever, chills, and weight loss, sb4 22:59 All other systems are negative, Exam: 22:59 Constitutional: This is a well developed, well nourished patient who is awake, alert, sb4 and in no acute distress. Head/Face: Normocephalic, atraumatic. Eyes: Extra-ocular motions intact. Periorbital areas with no swelling, redness, or edema. ENT: Mucous membranes moist. Cardiovascular: Regular rate and rhythm with a normal S1 and S2. Respiratory: No increased work of breathing, no retractions or nasal flaring. Vital Signs: 21:42 BP 76 / 59; Pulse 75; Resp 18; Temp 98.6; Pulse Ox 100% on 3 lpm NC; kb4 23:07 BP 99 / 67; Pulse 61; Resp 16; Pulse Ox 94% on 3 lpm NC; kd3 23:29 BP 125 / 53 RL; Pulse 64; Resp 19; Pulse Ox 96% on 3 lpm NC; kd3 03/12 02:04 BP 122 / 66; Pulse 67; Resp 19; Pulse Ox 98% on 3 lpm NC; kd3 MDM: 03/11 21:22 Medical Screening Exam initiated sb4 23:52 Data reviewed: vital signs, nurses notes, EMS record, lab test result(s), EKG, sp4 radiologic studies, ultrasound. 23:54 ED course: EXAM: Chest Single View HISTORY: 64 years Female hypoxia COMPARISON: No sp4 prior exams FINDINGS: LUNGS/PLEURA: Pulmonary vascular congestion. No consolidative airspace disease. CARDIAC/MEDIASTINUM: Moderate cardiomegaly. UPPER ABDOMEN: No significant abnormality. BONES: No acute abnormality. LINES/TUBES/OTHER: N/A IMPRESSION: Pulmonary vascular congestion. No alveolar edema or consolidative airspace disease. . 03/12 01:34 ED course: EXAMINATION: Lower ExtremityArterial Bilat INDICATION: Pain, hypotension sp4 recent bypass surgery. Status post previous bilateral femoral popliteal bypass. TECHNIQUE: Steen scale, color and spectral Doppler ultrasound exam was performed of the bilateral lower extremity arteries. COMPARISON: None. FINDINGS: RIGHT: Right common femoral artery demonstrates turbulent color flow with peak systolic velocity measuring up to 266 cm/s. Visualized right superficial femoral artery bypass is patent with biphasic spectral waveforms and without elevated peak systolic velocities. Right popliteal, posterior tibial and dorsal pedis arteries are patent with biphasic spectral waveforms and without elevated peak systolic velocities. Right superficial femoral vein are not visualized, suggesting complete occlusion. LEFT: Left common femoral artery, superficial femoral artery bypass bypass, popliteal artery, posterior tibial artery and fullness pedis arteries are patent with biphasic spectral waveform. No elevated peak systolic velocities. Left superficial femoral vein are not visualized, suggesting complete occlusion. IMPRESSION: 1. Patent bilateral lower extremity arteries. 2. Significant stenosis of right common femoral artery with elevated peak systolic velocity. 3. Nonvisualization of bilateral superficial femoral veins, suggesting complete occlusion.. 20:19 Differential Diagnosis: electrolyte abnormality, alcohol intoxication, pneumonia, sp4 seizure, sepsis, TIA, UTI. Consideration of Admission/Observation Escalation of care including admission/observation considered. Management of patient was discussed with the following: Application Infrastructure Engineer: Discussed with [facility] internal medicine. ED course: Patient was just released from [facility] the day prior after she had left femoral-popliteal bypass. Patient is now presenting to the emergency department with episode of hypotension and generalized weakness. Patient is feeling unwell overall. Blood pressure was measured on the right lower extremity and is found to be normal. Patient has no signs of hemodynamic instability. We have determined that patient warrants transfer to [facility] for continuity of care.. . 03/11 21:24 Order name: Basic Metabolic Panel; Complete Time: 22:37 sb4 03/11 21:24 Order name: CBC with Diff; Complete Time: 22:46 sb4 03/11 21:24 Order name: LFT's; Complete Time: 22:37 sb4 03/11 21:24 Order name: Magnesium; Complete Time: 22:37 sb4 03/11 21:24 Order name: NT PRO-BNP; Complete Time: 22:37 sb4 03/11 21:24 Order name: PT-INR; Complete Time: 22:21 sb4 03/11 21:24 Order name: Troponin HS; Complete Time: 22:37 sb4 03/11 21:24 Order name: Lactate w/ 2H reflex if indic.; Complete Time: 22:21 sb4 03/11 21:24 Order name: Blood Culture Adult (2) sb4 03/11 21:31 Order name: Type And Screen; Complete Time: 22:41 sp4 03/11 22:07 Order name: Manual Differential; Complete Time: 22:46 EDMS 03/11 22:18 Order name: Ghost Lactate-NO COLLECT Timer; Complete Time: 01:34 EDMS 03/12 01:04 Order name: Lactate Sepsis 2 HR Follow-up; Complete Time: 01:34 EDMS 03/11 21:24 Order name: XRAY Chest (1 view); Complete Time: 22:21 sb4 03/11 21:24 Order name: Lower Extremity Arterial Bilat US sb4 03/11 21:24 Order name: Cardiac monitoring; Complete Time: 21:51 sb4 03/11 21:24 Order name: EKG - Nurse/Tech; Complete Time: 21:43 sb4 03/11 21:24 Order name: IV Saline Lock; Complete Time: 21:43 sb4 03/11 21:24 Order name: Labs collected and sent; Complete Time: 21:43 sb4 03/11 21:24 Order name: O2 Per Protocol; Complete Time: 21:43 sb4 03/11 21:24 Order name: O2 Sat Monitoring; Complete Time: 21:43 sb4 EC/07 21:43 Rate is 64 beats/min. Rhythm is regular, Normal Sinus Rhythm with Left bundle branch sb4 block, Right bundle branch block. NE interval is prolonged at 202 msec. QRS interval is normal at 144 msec. QT interval is prolonged at 426 msec. No Q waves. T waves are Normal. Interpreted by me. Reviewed by me. Administered Medications: 21:39 Drug: NS 0.9% IV 1000 ml IV at 1 bolus Per protocol; to be given as a bolus over 60 kb4 minutes Route: IV; Rate: 1 bolus; Site: right forearm; 21:41 Follow up: IV Status: Completed infusion; IV Intake: 250ml kb4 22:00 Drug: Albumin IVPB 25 grams 100 ml IVPB once; (Note: Albumin 25% concentration) Volume: kb4 100 ml; Route: IVPB; Site: right forearm; 03/12 00:12 Follow up: Response: No adverse reaction; IV Status: Completed infusion kb4 00:00 Drug: fentaNYL (PF) IVP 25 mcg IVP once Route: IVP; Site: right antecubital; kb4 00:11 Follow up: Response: No adverse reaction kb4 Disposition: 03/11 23:48 Co-signature as Attending Physician, Eric Fish MD I agree with the assessment sp4 and plan of care. I reviewed the patient's care provided by Advanced Practice Provider \T\ agree w/ the diagnosis \T\ care plan. I personally saw the pt \T\ performed a substantive portion of the visit, incldng all aspects of the (History/Exam/Medical Decision Making). 03/12 00:05 Chart complete. sp4 20:17 Critical Care:. sp4 Disposition Summary: 03/11/25 23:52 Transfer Ordered Notes: Transfer Location: [facility]-System sp4 Reason: Higher level of care sp4 Condition: Fair sp4 Problem: new sp4 Symptoms: are unchanged sp4 Accepting Physician: [facility] attending (03/12/25 02:04) kd3 Diagnosis - Acute encephalopathy, acute hypoactive delirium, NSTEMI, anemia of renal disease, sp4 near syncopal episode - History of left femoral-popliteal bypass sp4 Forms: - Medication Reconciliation Form sp4 - SBAR form sp4 Critical care time excluding procedures: 20:17 Critical care time: Bedside Care: 36 minutes, Consultation: 12 minutes, Family sp4 Intervention: 12 minutes. Total time: 60 minutes Signatures: Dispatcher [employer] EDMS Christine Montero, RN RN kd3 Yesica Haley PA-C PAWoodrow [email or web address] Eric Fish MD MD sp4 Elvi Estevez, RN RN kb4 Corrections: (The following items were deleted from the chart) 03/11 21:25 21:25 Lower Extremity Arterial Bilat+US.RAD.BRZ ordered. EDMS EDMS 21:32 21:32 TYPE AND SCREEN+BB.LAB.BRZ ordered. EDMS EDMS 21:50 21:49 PMHx: Smoking; kb4 kb4 21:50 21:49 PSHx: J LUIS nephrectomy; kb4 kb4 21:50 21:49 PSHx: vascular surgery; kb4 kb4 21:50 21:49 PSHx: Stented artery; kb4 kb4 03/12 02:04 03/11 23:52 [facility] attending sp4 kd3
--- NOTE | 2025-03-11 23:53 | ER ---
Nurse's Notes [facility] Name: Sabrina Camargo Age: 64 yrs Sex: Female : 1960 Arrival Date: 03/11/2025 Time: 21:17 Bed 3 Private MD: Diagnosis: Acute encephalopathy, acute hypoactive delirium, NSTEMI, anemia of renal disease, near syncopal episode;History of left femoral-popliteal bypass Presentation: 03/11 21:42 Chief complaint: Patient states: pts home health nurse called EMS because the pts bp kb4 has been consistently low, pt reports recent L femoral bypass surgery last Monday, pt is on dialysis (T, ,S) did not attend today due to fatigue and feeling "altered" this morning. Coronavirus screen: At this time, unable to obtain information related to travel outside the [place] Ebola Screen: No symptoms or risks identified at this time. Initial Sepsis Screen: Does the patient meet any 2 criteria? Systolic BP < 90 mmHg. Mean Arterial Pressure (MAP) < 65. Yes Does the patient have a suspected source of infection? No. Patient's initial sepsis screen is negative. Risk Assessment: Do you want to hurt yourself or someone else? Patient reports no desire to harm self or others. Onset of symptoms was March 11, 2025. 21:42 Method Of Arrival: EMS: [facility] kb4 21:42 Acuity: OLIMPIA 2 kb4 Triage Assessment: 21:49 General: Appears in no apparent distress. comfortable, Behavior is calm, cooperative. kb4 Pain: Denies pain. Historical: - PMHx: 21:49 Dialysis; HTN; Myocardial infarction; RENAL FAILURE; kb4 - Immunization history:: Adult Immunizations up to date. - Infectious Disease History:: Denies. - Social history:: Smoking status: Patient/guardian denies using tobacco, Stopped _ months ago 2. Screenin:53 [facility] ED Fall Risk Assessment (Adult) History of falling in the last 3 months, kb4 including since admission No falls in past 3 months (0 pts) Confusion or Disorientation No (0 pts) Intoxicated or Sedated No (0 pts) Impaired Gait No (0 pts) Mobility Assist Device Used No (0 pt) Altered Elimination No (0 pt) Score/Fall Risk Level 0 - 2 = Low Risk. Abuse screen: Denies threats or abuse. Denies injuries from another. Nutritional screening: No deficits noted. Tuberculosis screening: No symptoms or risk factors identified. Assessment: 21:41 Reassessment: only gave 250ml of bolus. kb4 21:51 Pain: Denies pain. Neuro: Level of Consciousness is awake, alert, obeys commands, kb4 Oriented to person, place, time, situation. Cardiovascular: Patient's skin is warm and dry. Pulses are 2+ in right radial artery. Respiratory: Airway is patent Respiratory effort is even, unlabored, Respiratory pattern is regular, symmetrical. GI: Abdomen is flat. : Reports dialysis pt. EENT: No signs and/or symptoms were reported regarding the EENT system. Derm: Skin recent surgical cite at L femoral. Musculoskeletal: No deficits noted. 23:07 General: Appears in no apparent distress. Behavior is calm, cooperative. Pain: kd3 Complains of pain in right lower quadrant and left lower quadrant. Cardiovascular: Capillary refill < 3 seconds Patient's skin is warm and dry. Pulses are palpable in right dorsalis pedis artery and left dorsalis pedis artery. 23:40 Reassessment: BP cuff switched to R lower leg per MD discression, VS improvement. kb4 03/12 00:12 Reassessment: pain improved w/ fentanyl Patient states feeling better. Patient states kb4 symptoms have improved. Reassessment: Patient and/or family updated on plan of care and expected duration. Pain level reassessed. Patient is alert, oriented x 3, equal unlabored respirations, skin warm/dry/pink. General:. 00:15 Reassessment: attempted to call [facility] to give report, RN stated "i was not [facility] aware of a transfer, i need to find placement and i will call you back". 00:45 General: [facility] TO [facility] . kd3 Vital Signs: 03/11 21:42 BP 76 / 59; Pulse 75; Resp 18; Temp 98.6; Pulse Ox 100% on 3 lpm NC; kb4 23:07 BP 99 / 67; Pulse 61; Resp 16; Pulse Ox 94% on 3 lpm NC; kd3 23:29 BP 125 / 53 RL; Pulse 64; Resp 19; Pulse Ox 96% on 3 lpm NC; kd3 03/12 02:04 BP 122 / 66; Pulse 67; Resp 19; Pulse Ox 98% on 3 lpm NC; kd3 ED Course: 03/11 21:22 Patient arrived in ED. sb4 21:22 Yesica Haley PA-C is PHCP. sb4 21:22 Manuelito Toribio MD is Attending Physician. sb4 21:39 Elvi Estevez, RN is Primary Nurse. kb4 21:49 Triage completed. kb4 21:49 Arm band placed on. kb4 21:53 Patient has correct armband on for positive identification. Bed in low position. Call kb4 light in reach. Side rails up X 1. 21:53 Inserted saline lock: 22 gauge in right forearm, using aseptic technique. Blood kb4 collected. Flushed with 10 mL NS. 22:12 XRAY Chest (1 view) In Process Unspecified. EDMS 22:45 Eric Fish MD is Attending Physician. sb4 23:05 Lower Extremity Arterial Bilat US In Process Unspecified. EDMS 23:47 initiated transfer with [facility]. kmf 03/12 00:02 pt was accepted to [address] 931[address] accepting Juan Ramon Mccain \\[id number] admin kmf approval Pauline \\[id number]\\[id number]. EMS to transfer pt. 02:03 Provided Education on: BLOOD PRESSURE . kd3 02:03 No provider procedures requiring assistance completed. Patient transferred, IV remains kd3 in place. Administered Medications: 03/11 21:39 Drug: NS 0.9% IV 1000 ml IV at 1 bolus Per protocol; to be given as a bolus over 60 kb4 minutes Route: IV; Rate: 1 bolus; Site: right forearm; 21:41 Follow up: IV Status: Completed infusion; IV Intake: 250ml kb4 22:00 Drug: Albumin IVPB 25 grams 100 ml IVPB once; (Note: Albumin 25% concentration) Volume: kb4 100 ml; Route: IVPB; Site: right forearm; 03/12 00:12 Follow up: Response: No adverse reaction; IV Status: Completed infusion kb4 00:00 Drug: fentaNYL (PF) IVP 25 mcg IVP once Route: IVP; Site: right antecubital; kb4 00:11 Follow up: Response: No adverse reaction kb4 Medication: 03/11 23:29 VIS not applicable for this client. kd3 Intake: 21:41 IV: 250ml; Total: 250ml. kb4 Outcome: 23:52 ER care complete, transfer ordered by sp4 03/12 02:03 Transferred by ground EMS to [facility], kd3 Condition: stable Discharge instructions given to patient, Instructed on the need for transfer, 02:04 Patient left the ED. kd3 Signatures: Dispatcher [employer] Christine Keller RN RN kd3 Yesica Haley, PA-C PA-C sb4 Eric Fish MD MD sp4 [facility] Elvi Estevez RN RN kb4 Corrections: (The following items were deleted from the chart) 03/11 21:50 21:49 PMHx: Smoking; kb4 kb4 21:50 21:49 PSHx: J LUIS nephrectomy; kb4 kb4 21:50 21:49 PSHx: vascular surgery; kb4 kb4 21:50 21:49 PSHx: Stented artery; kb4 kb4
[2025-03-12 02:24] VITALS: TEMP 98.6
[2025-03-12 02:28] VITALS: BP 122/66; O2SAT 98
--- NOTE | 2025-03-12 07:09 | RAD REPORT ---
EXAMINATION: Lower Extremity Arterial Bilat INDICATION: Pain, hypotension recent bypass surgery. Status post previous bilateral femoral popliteal bypass. TECHNIQUE: Steen scale, color and spectral Doppler ultrasound exam was performed of the bilateral lowe r extremity arteries. COMPARISON: None. FINDINGS: RIGHT: Right common femoral artery demonstrates turbulent color flow with peak systolic velocity measuring u p to 266 cm/s. Visualized right superficial femoral artery bypass is patent with biphasic spectral waveforms and wit hout elevated peak systolic velocities. Right popliteal, posterior tibial and dorsal pedis arteries are patent with biphasic spectral wavefor ms and without elevated peak systolic velocities. Right superficial femoral vein are not visualized, suggesting complete occlusion. LEFT: Left common femoral artery, superficial femoral artery bypass bypass, popliteal artery, posterior tib ial artery and fullness pedis arteries are patent with biphasic spectral waveform. No elevated peak systolic velocities. Left superficial femoral vein are not visualized, suggesting complete occlusion. IMPRESSION: 1. Patent bilateral lower extremity arteries. 2. Significant stenosis of right common femoral artery with elevated peak systolic velocity. 3. Nonvisualization of bilateral superficial femoral veins, suggesting complete occlusion. The findings were discussed with Dr. Eric Fish at 03/12/2025 1:05 AM CDT. Electronically signed by: Lalitha Babin MD 03/12/2025 01:19 AM CDT RP Due to temporary technical issues with the PACS/Zinio reporting system, reports are being signed by the in-house radiologist without review as a courtesy to ensure prompt reporting the interpreting rad iologist is fully responsible for the content of the report. Transcribed Date/Time: 03/12/2025 7:08 AM
== END 2025-03-12 02:04 | disposition short-term general hospital (02) ==
LOC: ER 21:17
DX: I21.4 Non-ST elevation (NSTEMI) myocardial infarction (principal); G93.40 Encephalopathy, unspecified; F05 Delirium due to known physiological condition; N19 Unspecified kidney failure; D63.8 Anemia in other chronic diseases classified elsewhere; Z95.820 Peripheral vascular angioplasty status with implants and grafts; Z99.2 Dependence on renal dialysis
CPT/HCPCS: 96365; 93005; 87040 ×2; 85025; 80048; 36415; 86900; 83735; 86850; 85610; 86901; 80076; 83605 ×2; 84484; 83880; 71045; 93925; 96375; 99285; 96366; J3010; P9047; J7030

== ENCOUNTER 2025-03-15 12:56 | Emergency (ER) | payer OTHER ==
[2025-03-15] MEDS ORDERED: PHENYLEPHRINE 0.5% NOSE 15ML NAS ONE (13:09)
--- NOTE | 2025-03-15 15:00 | ER ---
Nurse's Notes [facility] Name: Sabrina Camargo Age: 64 yrs Sex: Female : 1960 Arrival Date: 03/15/2025 Time: 12:56 Bed 17 Private MD: Diagnosis: Epistaxis Presentation: 03/15 12:59 Chief complaint: EMS states: Pt reports a nose bleed for the past hour and weeping from jb4 her surgical site on her left upper leg. Coronavirus screen: At this time, the client does not indicate any symptoms associated with coronavirus-19. Ebola Screen: No symptoms or risks identified at this time. Initial Sepsis Screen: Does the patient meet any 2 criteria? No. Patient's initial sepsis screen is negative. Does the patient have a suspected source of infection? No. Patient's initial sepsis screen is negative. Risk Assessment: Do you want to hurt yourself or someone else? Patient reports no desire to harm self or others. Onset of symptoms was March 15, 2025. Transition of care: patient was not received from another setting of care. 12:59 Method Of Arrival: EMS: [facility] jb4 12:59 Acuity: OLIMPIA 3 jb4 Historical: - Allergies: 13:00 No Known Allergies; jb4 - Home Meds: 13:00 Eliquis oral [Active]; jb4 - PMHx: 13:00 Dialysis; HTN; Myocardial infarction; RENAL FAILURE; COPD; Home O2 2L NC; jb4 - PSHx: 13:00 heart stents; J LUIS legs; jb4 - Immunization history:: Adult Immunizations up to date. - Infectious Disease History:: Denies. Screenin:16 [facility] ED Fall Risk Assessment (Adult) History of falling in the last 3 months, jb4 including since admission No falls in past 3 months (0 pts) Confusion or Disorientation No (0 pts) Intoxicated or Sedated No (0 pts) Impaired Gait No (0 pts) Mobility Assist Device Used No (0 pt) Altered Elimination No (0 pt) Score/Fall Risk Level 0 - 2 = Low Risk Oriented to surroundings, Maintained a safe environment. Abuse screen: Denies threats or abuse. Nutritional screening: No deficits noted. Tuberculosis screening: No symptoms or risk factors identified. Assessment: 12:45 General: Appears in no apparent distress. comfortable, Behavior is calm, cooperative, jb4 appropriate for age. Pain: Denies pain. Neuro: Level of Consciousness is awake, alert, obeys commands, Oriented to person, place, time, situation. Cardiovascular: Patient's skin is warm and dry. Respiratory: Airway is patent Respiratory effort is even, unlabored, Respiratory pattern is regular, symmetrical. Derm: Skin is intact, Skin is pink, warm \T\ dry. 14:15 Reassessment: Patient appears in no apparent distress at this time. Patient and/or jb4 family updated on plan of care and expected duration. Pain level reassessed. Patient is alert, oriented x 3, equal unlabored respirations, skin warm/dry/pink. Pt reports she is now spitting up blood and her nose is still bleeding, provider made aware. Vital Signs: 12:59 BP 116 / 66; Pulse 79; Resp 16; Pulse Ox 92% on R/A; jb4 14:16 BP 106 / 74; Pulse 71; Resp 16; Pulse Ox 96% on 2 lpm NC; jb4 15:15 BP 139 / 79; Pulse 71; Resp 16; Pulse Ox 100% on R/A; jb4 ED Course: 12:58 Patient arrived in ED. jb4 12:58 Aleja Mares FNP-C is [facility]. kb 12:58 David Vila MD is Attending Physician. kb 13:00 Triage completed. jb4 13:00 Arm band placed on right wrist. jb4 14:14 Vipul Fields, RN is Primary Nurse. jb4 14:16 Patient has correct armband on for positive identification. Bed in low position. Call jb4 light in reach. Side rails up X 1. Provided Education on: plan of care. 15:15 No provider procedures requiring assistance completed. Patient did not have IV access jb4 during this emergency room visit. Administered Medications: 13:12 Drug: Govind-Synephrine Intranasal [place] 0.5 % 2 sprays Intranasal once Route: Intranasal; jb4 Site: both nares; Medication: 14:16 VIS not applicable for this client. jb4 Outcome: 14:59 Discharge ordered by . kb 15:58 Discharged to home ambulatory, jb4 15:58 Condition: stable 15:58 Discharge instructions given to patient, Instructed on discharge instructions, follow up and referral plans. Demonstrated understanding of instructions, follow-up care, 15:59 Patient left the ED. jb4 Signatures: Aleja Mares, DEICER REPAIRER ELECTRIC-C DEICER REPAIRER ELECTRIC-Ckb Vipul Fields, RN RN jb4
--- NOTE | 2025-03-15 15:00 | EDPHYS ---
Physician Documentation [facility] Name: Sabrina Camargo Age: 64 yrs Sex: Female : 1960 Arrival Date: 03/15/2025 Time: 12:56 Bed 17 Private MD: ED Physician David Vila HPI: 03/15 14:57 This 64 yrs old Female presents to ER via EMS with complaints of Nose Bleed. kb 14:57 Pt is a 64 year old female who presents for nosebleed that started one hour real time trader. States kb she hasn't been able to get it to stop so she called 911. States she sneezed and it started bleeding. Also would like surgical site evaluated. Pt states she had surgery on left leg to improve vascular flow. Follow up with surgeon next week. Historical: - Allergies: 13:00 No Known Allergies; jb4 - Home Meds: 13:00 Eliquis oral [Active]; jb4 - PMHx: 13:00 Dialysis; HTN; Myocardial infarction; RENAL FAILURE; COPD; Home O2 2L NC; jb4 - PSHx: 13:00 heart stents; J LUIS legs; jb4 - Immunization history:: Adult Immunizations up to date. - Infectious Disease History:: Denies. ROS: 14:54 Constitutional: As per HPI kb Exam: 14:54 Constitutional: This is a well developed, well nourished patient who is awake, alert, kb and in no acute distress. Head/Face: Normocephalic, atraumatic. Cardiovascular: Regular rate Respiratory: Respirations even and unlabored. No increased work of breathing. Talking in full sentences MS/ Extremity: Pulses equal, no cyanosis. Neurovascular intact. Full, normal range of motion. Neuro: Awake and alert, GCS 15, oriented to person, place, time, and situation. 14:54 ENT: Nose: External nose: no obvious acute abnormality, bleeding, is seen from the left nare, and is moderate, no septal hematoma is appreciated, 14:58 Skin: surgical incision to medial aspect of left thigh with gurdeep in place. . kb Vital Signs: 12:59 BP 116 / 66; Pulse 79; Resp 16; Pulse Ox 92% on R/A; jb4 14:16 BP 106 / 74; Pulse 71; Resp 16; Pulse Ox 96% on 2 lpm NC; jb4 15:15 BP 139 / 79; Pulse 71; Resp 16; Pulse Ox 100% on R/A; jb4 Procedures: 14:55 Epistaxis treatment: A small amount of bleeding noted from left nare. Treated using kb nasal clamp, rhino rocket, nasal clamp applied first, but did not resolve bleeding. Rhinorocket placed in left nare, bleeding resolved. Pt accidentally pulled on rhinorocket and displaced it. Second rhinorocket inserted into left nare. Bleeding resolved. MDM: 12:58 Medical Screening Exam initiated kb 14:55 Differential diagnosis: trauma, sinusitis, epistaxis r/t trauma, spontaneous epistaxis. kb Data reviewed: vital signs, nurses notes. Counseling: I had a detailed discussion with the patient and/or guardian regarding the historical points, exam findings, and any diagnostic results supporting the discharge/admit diagnosis, the need for outpatient follow up, an ENT specialist, to return to the emergency department if symptoms worsen or persist or if there are any questions or concerns that arise at home. 14:59 Test considered but Not performed: Labs: cbc considered but vital signs wnl. kb 03/15 12:59 Order name: Misc. Order: apply nose clamp; Complete Time: 13:12 kb 03/15 12:59 Order name: Wound Care; Complete Time: 13:26 kb Administered Medications: 13:12 Drug: Govind-Synephrine Intranasal [place] 0.5 % 2 sprays Intranasal once Route: Intranasal; jb4 Site: both nares; Disposition: 15:59 Co-signature as Attending Physician, David Vila MD I reviewed the patient's care rn provided by the Advanced Practice Provider and agree with the diagnosis and treatment plan. Disposition Summary: 03/15/25 14:59 Discharge Ordered Notes: Location: Home kb Condition: Stable kb Diagnosis - Epistaxis kb Followup: kb - With: Emergency Department - When: As needed - Reason: Worsening of condition Followup: kb - With: Private Physician - When: 2 - 3 days - Reason: Recheck today's complaints, Continuance of care, Re-evaluation by your physician Discharge Instructions: - Discharge Summary Sheet kb - Nosebleed, Adult, [id number] kb Forms: - Medication Reconciliation Form kb - Antibiotic Education kb - Prescription Opioid Use kb - Patient Portal Instructions kb - Leadership Thank You Letter kb Signatures: Aleja Mares, SECY-C SECY-Ckb David Vila MD MD rn Bryson, James, RN RN jb4 Corrections: (The following items were deleted from the chart) 14:58 14:57 Pt is a 64 year old female who presents for nosebleed that started one hour real time trader. kb States she hasn't been able to get it to stop so she called 911. States she sneezed and it started bleeding. . kb
[2025-03-15 16:08] VITALS: BP 139/79; O2SAT 100
== END 2025-03-15 15:59 | disposition home or self-care (01) ==
LOC: ER 12:56
DX: R04.0 Epistaxis (principal); I10 Essential (primary) hypertension; Z79.01 Long term (current) use of anticoagulants
CPT/HCPCS: 30901; 99283